=== PATIENT | female | born 1990 | race Hispanic/Latino ===

== ENCOUNTER 2024-03-30 22:47 | Day surgery (SDC) | payer OTHER ==
[2024-03-30 23:13] VITALS: BMI 36.6
[2024-03-31] MEDS ORDERED: hydrALAZINE 20 MG/ML VIAL SLOW IVP PRN (00:02)
[2024-03-31 02:16] LABS: #Basophils 0.04 10x3/uL (0.0-0.2); #Eosinophils 0.07 10x3/uL (0.0-0.5); #Monocytes 1.07 10x3/uL (0.0-1.1); #Neutrophils 8.39 10x3/uL (1.5-8.4); %Basophils 0.3 % (0.0-2.0); %Eosinophils 0.6 % (0.0-6.0); %Lymphocytes 20.5 % (18.0-47.0); %Monocytes 8.9 % (0.0-10.0); %Neutrophils 69.5 % (40.0-75.0); Hematocrit 37.4 % (34.9-44.5); Hemoglobin 12.4 g/dL (12.0-15.5); Mean Corpuscular HGB CONC 33.2 g/dL (32.0-36.0); Mean Corpuscular Hemoglobin 28.8 pg (27.0-33.0); Mean Platelet Volume 10.5 fL (7.4-10.4); Platelet Count 261 10x3/uL (150-450); RBC Distribution Width 13.4 % (11.5-14.5); White Blood Cell (WBC) Count 12.1 10x3/uL (3.5-10.5)
[2024-03-31 02:31] LABS: ALT (SGPT) 16 U/L (8-55); AST (SGOT) 15 U/L (5-34); Albumin 2.7 g/dL (3.5-5.0); Alkaline Phosphatase 126 U/L (40-110); Anion Gap 14 mmol/L (10-20); BUN (Urea Nitrogen) 12 mg/dL (7.0-18.7); Bilirubin, Total 0.5 mg/dL (0.2-1.2); Calc. Creatinine Clearance 227 mL/min (70-130); Carbon Dioxide 18 mmol/L (22-29); Chloride 109 mmol/L (98-107); Estimated GFR 127; Globulin 3.8 g/dL (2.4-3.5); Glucose 79 mg/dL (70-105); Protein, Total 6.5 g/dL (6.0-8.3); Sodium 137 mmol/L (136-145)
[2024-03-31 03:35] LABS: Creatinine, Urine 123.81 mg/dL (47-110)
== END 2024-03-31 04:28 | disposition home or self-care (01) ==
LOC: CSHERS 22:47 → CSHLD/OP 03-31 04:28
PROVIDERS: ATTEND Family Medicine
DX: O47.1 False labor at or after 37 completed weeks of gestation (principal); O34.211 Maternal care for low transverse scar from previous cesarean delivery; Z79.899 Other long term (current) drug therapy; Z98.890 Other specified postprocedural states; Z79.82 Long term (current) use of aspirin; Z3A.39 39 weeks gestation of pregnancy
CPT/HCPCS: 36415; 80053; 82570; 84156; 85025; 99284

== ENCOUNTER 2024-04-01 00:19 | Inpatient (IN) | payer OTHER ==
[2024-04-01 01:01] VITALS: BMI 36.6
[2024-04-01] MEDS ORDERED: hydrALAZINE 20 MG/ML VIAL SLOW IVP PRN ×3 (01:48→20:20)
[2024-04-01] MEDS: Lactated Ringer's 1,000 ML IV SCH (03:30)
[2024-04-01 03:32] LABS: #Basophils 0.03 10x3/uL (0.0-0.2); #Eosinophils 0.02 10x3/uL (0.0-0.5); #Monocytes 0.92 10x3/uL (0.0-1.1); #Neutrophils 8.13 10x3/uL (1.5-8.4); %Basophils 0.3 % (0.0-2.0); %Eosinophils 0.2 % (0.0-6.0); %Lymphocytes 21.3 % (18.0-47.0); %Monocytes 7.9 % (0.0-10.0); %Neutrophils 69.9 % (40.0-75.0); Hematocrit 37.9 % (34.9-44.5); Mean Corpuscular HGB CONC 34.3 g/dL (32.0-36.0); Mean Corpuscular Hemoglobin 29.4 pg (27.0-33.0); Mean Corpuscular Volume 85.7 fL (81.6-98.3); Mean Platelet Volume 10.8 fL (7.4-10.4); Platelet Count 277 10x3/uL (150-450); RBC Distribution Width 13.3 % (11.5-14.5); Red Blood Cell (RBC) Count 4.42 10x6/uL (3.90-5.03); White Blood Cell (WBC) Count 11.6 10x3/uL (3.5-10.5)
[2024-04-01 03:34] LABS: Bilirubin Neg (Negative); Blood, Urine 10 (Negative); Glucose, Urine (Dipstick) Normal (Negative); Ketone, Urine 50 mg/dL (Negative); Leukocyte Negative (Negative); Nitrite Negative (Negative); Protein, Urine (Dipstick) 30 mg/dl (Neg-Trace); Urobilinogen Normal mg/dL (Less than 2)
[2024-04-01 03:42] LABS: ALT (SGPT) 17 U/L (8-55); AST (SGOT) 18 U/L (5-34); Alkaline Phosphatase 135 U/L (40-110); Anion Gap 16 mmol/L (10-20); BUN (Urea Nitrogen) 9 mg/dL (7.0-18.7); Bilirubin, Total 0.8 mg/dL (0.2-1.2); Calc. Creatinine Clearance 218 mL/min (70-130); Carbon Dioxide 18 mmol/L (22-29); Chloride 108 mmol/L (98-107); Estimated GFR 126; Globulin 3.5 g/dL (2.4-3.5); Glucose 87 mg/dL (70-105); Potassium 4.2 mmol/L (3.5-5.1); Protein, Total 6.5 g/dL (6.0-8.3); Sodium 138 mmol/L (136-145)
[2024-04-01] MEDS ORDERED: Lidocaine 1% (PF) 30 ML VIAL SC PRN (03:42)
[2024-04-01] MEDS ORDERED: Diphenoxylate HCl/Atropine Tablet PO PRN (03:42)
[2024-04-01] MEDS ORDERED: Carboprost 250 MCG/ML AMP IM PRN (03:42)
[2024-04-01] MEDS ORDERED: Misoprostol 200 MCG TAB PR PRN (03:42)
[2024-04-01] MEDS ORDERED: Tranexamic Acid 1,000 MG/10 ML VIAL IVP PRN (03:42)
[2024-04-01] MEDS ORDERED: Ibuprofen 800 MG TAB PO PRN (03:42)
[2024-04-01] MEDS ORDERED: Promethazine HCl 25 MG/ML VIAL IM PRN ×2 (03:42→04:38)
[2024-04-01] MEDS: fentaNYL 50 mcg/mL 1 mL Vial SLOW IVP SCH (03:43)
[2024-04-01] MEDS ORDERED: Oxytocin 30 units/NS 500 ML 500 ML IV SCH ×3 (03:45→20:20)
[2024-04-01 03:50] LABS: Clarity Hazy (Clear); Creatinine, Urine 73.32 mg/dL (47-110)
[2024-04-01] MEDS: fentaNYL/Ropivacaine Epidural 100 ML ONE (04:14)
[2024-04-01 04:19] LABS: Bacteria/HPF Rare-Few HPF (None Seen); CAUTI Indications for Culture Dysuria,urgency,freq; Mucous/LPF Rare LPF (<2+); RBC/HPF 0-3 HPF (0-3); WBC/HPF 0-3 HPF (0-3)
[2024-04-01 04:20] LABS: Urine Culture Reflex No No
[2024-04-01 04:27] LABS: Syphilis Antibody Nonreactive (Nonreactive); Syphilis Antibody Index 0.05 S/CO (<1.00 Non-Reactive)
[2024-04-01 04:28] LABS: Hep B Surf Ag - L&D Non-Reactive S/CO (NonReactive)
[2024-04-01] MEDS ORDERED: Acetaminophen 325 MG TAB PO PRN (04:38)
[2024-04-01] MEDS ORDERED: Ondansetron PF 4 MG/2 ML Vial IVP PRN ×2 (04:38→20:20)
[2024-04-01] MEDS ORDERED: diphenhydrAMINE 50 MG/ML VIAL IVP PRN (04:38)
[2024-04-01] MEDS ORDERED: ePHEDrine Sulfate 50 MG/10 ML VIAL SLOW IVP PRN (04:38)
[2024-04-01] MEDS ORDERED: Naloxone HCl 0.4 mg/ml Vial IVP PRN ×2 (04:38)
[2024-04-01] MEDS ORDERED: Moisturizing Cream (Eucerin) 113 GM JAR TOP PRN (04:38)
[2024-04-01] MEDS ORDERED: Lactated Ringer's 500 ML IV PRN (04:38)
[2024-04-01] MEDS ORDERED: Communication Order-Pharmacy FS SCH (04:45)
[2024-04-01] MEDS ORDERED: Bupivacaine 0.25% HCL 30 ML VIAL ONE (08:00)
[2024-04-01] MEDS ORDERED: Dextrose 5%-Lactated Ringers 1,000 ML IV SCH (09:15)
[2024-04-01] MEDS: Oxytocin 30 units/NS 500 ML 500 ML IV SCH (11:42)
[2024-04-01] MEDS: Ondansetron PF 4 MG/2 ML Vial IVP PRN (11:53)
[2024-04-01] MEDS: fentaNYL 2 mcg/Ropivacaine 0.2% Epidural 100 ML CADD EPIDURAL SCH (16:26)
[2024-04-01] MEDS ORDERED: Misoprostol 200 MCG TAB VAG PRN (20:20)
[2024-04-01] MEDS ORDERED: Benzocaine-Menthol 82.5 ML CAN TOP PRN (20:20)
[2024-04-01] MEDS ORDERED: Bisacodyl 10 MG SUPP PR PRN (20:20)
[2024-04-01] MEDS ORDERED: Milk Of Magnesia 30 ML UDCUP PO PRN (20:20)
[2024-04-01] MEDS ORDERED: Preparation H Ointment 28 GM TUBE PR PRN (20:20)
[2024-04-01] MEDS ORDERED: HYDROcodone/Acetaminophen 5/325 mg Tablet PO PRN ×2 (20:20)
[2024-04-01] MEDS ORDERED: Lanolin Ointment 7 GM TUBE TOP PRN (20:20)
[2024-04-01] MEDS ORDERED: diphenhydrAMINE 25 MG CAP PO PRN (20:20)
[2024-04-01] MEDS: Ferrous Sulfate 325 MG TAB PO SCH (21:14)
[2024-04-01] MEDS: Ibuprofen 800 MG TAB PO SCH (21:14)
[2024-04-01] MEDS: Docusate 100 MG CAP PO SCH (21:14)
[2024-04-02] MEDS: Ferrous Sulfate 325 MG TAB PO SCH (08:30)
[2024-04-02] MEDS: Boostrix 0.5 ML (Tdap) VIAL (>/=7 yrs of age) IM ONE (08:30)
[2024-04-02] MEDS: Prenatal Vitamin 1 TAB PO SCH (08:31)
[2024-04-02 20:32] VITALS: BP 117/71; TEMP 97.9
== END 2024-04-02 19:51 | disposition home or self-care (01) | DRG 807 ==
LOC: CSHLD/OP 00:19 → CSHLD 01:18 → CSHPP 20:04
PROVIDERS: ADMIT Family Medicine; ATTEND Family Medicine
PROC: 10E0XZZ Delivery of Products of Conception, External Approach (ICD-10-PCS; principal; 2024-04-01)
PROC: 0KQM0ZZ Repair Perineum Muscle, Open Approach (ICD-10-PCS; 2024-04-01)
DX: O14.14 Severe pre-eclampsia complicating childbirth (principal); Z37.0 Single live birth; O34.211 Maternal care for low transverse scar from previous cesarean delivery; O99.214 Obesity complicating childbirth; E66.9 Obesity, unspecified; Z3A.40 40 weeks gestation of pregnancy; O70.1 Second degree perineal laceration during delivery
CPT/HCPCS: 36415; 51702; 80053; 81001; 82570; 84156; 85025; 86780; 86850; 86900; 86901; 87340; 99285; J0665; J2405; J2590; J3010; J7120